=== PATIENT | female | born 1955 | race Caucasian/White ===

== ENCOUNTER 2023-08-04 10:19 | Emergency (ER) | payer OTHER, SELFPAY ==
[2023-08-04 10:29] VITALS: BP 182/98
--- NOTE | 2023-08-04 11:03 | ED.GENMED ---
History of Present Illness
General
Chief Complaint: Fall
Source: patient
Exam Limitations: none
Time Seen by Provider: 08/04/23 10:38
Nursing documentation reviewed up to this point in time: agreed with
Travel History
Have you had any contact with someone who has COVID-19?: No
Do you have any symptoms of coronavirus? Fever > 100 degrees, chills, cough, shortness of breath, sore throat, loss of taste or smell, muscle aches, or headache?: No
History of Present Illness
History of Present Illness:
pt is a 67 y/o F with h/o HLD and osteoporosis
had a mechanical trip and fall getting out of her car last night at 8 pm
had no loc but hit her face on the asphalt.
she has bruising and mild pain to right orbital region
is primarily complainign of left hand pain, 4th adn 5th fingers
no nausea, vomiting, ehadache, blurry vision, cp, sob, syncope, confusoin, weakness, numbness
pt had some mild neck soreness but not significant
she did not take anything for pain and declined offer for tylenol
Past History
Past History
ED Past Medical History: Hypercholesterolemia
Social History
Tobacco: Non-smoker
Alcohol: None
Drug: None
Personal:
Living: with family
Review of Systems
Review of Systems
Allergies reviewed?: Yes
All Other Systems: Not applicable
Phy Exam
Physical Exam
Physical Exam:
GENERAL: Alert , in no apparent distress
HEAD: NCAT
FACE: significant STS and ecchymosis right orbital region
mild tenderness to forehaed and superior orbit
no inferior orbital tenderness despite ecchymosis
pt is still able to open her eye but has some mild eyelid edema
normal pupil
NECK: no midline tenderness, active ROM intact, no paraspinal muscle tenderness; full rom
EYE: pupils equal and reactive, EOMs intact.
ENT: o/p clr, mmm. no hemotympanum
CARDIAC: Regular rate and rhythm, no edema
LUNGS: Clear breath sounds bilaterally, no acute respiratory distress, no wheezes/rales/rhonchi
ABDOMEN: Soft, without focal tenderness, no r/g, no cvat
NEUROLOGICAL: Alert and oriented, no focal neuro deficits, CN intact, 5/5 strength, sensation intact
SKIN: Warm and dry, bruising to face
MUSCULOSKELETAL: mild swelling to 3rd MCP joint L hand without tenderness
nontender 4th and 5th digits, no deformities
pt has pain with movement of fingers
wrist and forearm normal
PSYCH: Normal and appropriate interaction.
Course
Orders/Labs/Results
Orders:
Orders
08/04/23 10:57
CT Head W/o Iv Contrast Urgent
Comment:
Reason For Exam: fall yesterday, hit head
CT Orbits W/o Iv Contrast Urgent
Comment:
Reason For Exam: fall yesterday, orbital sts and bruising and tende
CR Hand - Left Min 3 Views Urgent
Comment:
Reason For Exam: left 4th and 5th finger pain after fall
08/04/23 12:03
Vital Signs- Treatment ONCE
Frequency: Once
Vital Signs
Initial and Last Documented VS:
Initial Vital Signs
Temp Pulse Resp BP Pulse Ox
99.0 F 91 16 182/98 98
08/04/23 10:29 08/04/23 10:29 08/04/23 10:29 08/04/23 10:29 08/04/23 10:29
Last Documented Vital Signs
Temp Pulse Resp BP Pulse Ox
99.0 F 91 16 160/84 98
08/04/23 10:29 08/04/23 10:29 08/04/23 10:29 08/04/23 12:13 08/04/23 10:29
MDM/Problems Addressed
Differential Diagnosis Includes:
contusion, fracture, head injury hand fracture
MDM/Problems Addressed:
67 y/o F with mechanical flal causing contusion to rigth orbital region and left hand pain/contusion
no loc
no vision changes
no vomting
no thinners
hand xray indep reviewed by me and neg for fx
ct head/orbits neg
ice, tylenol
*Critical Care Note
Total Time (30-74mins, 75-104mins- exclusive of procedures): Not Applicable
ED Attending Note
-
Portions of this chart may have been created with voice recognition software.� Occasional wrong word or��sound alike� substitutions may have occurred due to the inherent limitations of voice recognition software.
Discharge Plan
Departure
Patient Disposition: Home (Routine Discharge)
Date of Disposition: 08/04/23
Time of Disposition: 12:01
Patient with high blood pressure during this ER visit?: Yes
Condition: Fair
Covid-19: Not Applicable
Discharge Problem:
Fall, Contusion of face, Contusion of hand
Instructions: Contusion (DC), BLOOD PRESSURE
Referrals:
Edson Lopes MD [Family Provider] - Follow up in 2-3 days
Activity Restrictions/Additional Instructions:
Fortunately your CAT scan showed no signs of traumatic head injury or fracture in your orbit region. You should ice off-and-on, the contusion will continue to drain down your face, it will take some time for the blood to resorb. You can take
Tylenol or ibuprofen if you tolerate it for pain as needed. Your hand x-ray did not show any obvious fractures. You can ice off-and-on to your face and your hand. Follow-up with your family doctor in the next couple of days as needed. Return for
any concerns like severe headache, vomiting, vision changes, numbness tingling or weakness, confusion, any concerns
Interventions
Interventions:
*Risk Screen - Suicide Last Done: 08/04/23 10:41
*General Assessment Last Done: 08/04/23 10:41
*Neglect/Abuse Screening Last Done: 08/04/23 10:41
ED- Fall Risk Assessment Last Done: 08/04/23 10:41
*ED COVID-19 Vaccine History Last Done: 08/04/23 10:29
*Nursing Disposition Last Done: 08/04/23 12:13
ED-Musculoskeletal Assessment Last Done: 08/04/23 10:41
ED- Neurological Assessment Last Done: 08/04/23 10:41
ED-Skin Assessment Last Done: 08/04/23 10:41
Discharge Date and Time
Discharge Date/Time: 08/04/23 12:14
[2023-08-04 12:13] VITALS: BP 160/84
== END 2023-08-04 12:14 | disposition home or self-care (01) ==
LOC: EMR 10:19
PROVIDERS: EMERGENCY PHYSICIAN Emergency Medicine; FAMILY PHYSICIAN Family Medicine
DX: S00.83XA Contusion of other part of head, initial encounter (principal); S60.222A Contusion of left hand, initial encounter; W19.XXXA Unspecified fall, initial encounter; E78.00 Pure hypercholesterolemia, unspecified; M81.0 Age-related osteoporosis without current pathological fracture
CPT/HCPCS: 99284; 70450; 70480; 73130

== ENCOUNTER → 2023-11-15 07:44 | Outpatient (REF) | payer OTHER, SELFPAY | LOC: RAD 07:44 | PROVIDERS: ATTENDING PHYSICIAN Family Medicine | DX: Z87.891 Personal history of nicotine dependence (principal); Z12.2 Encounter for screening for malignant neoplasm of respiratory organs | CPT/HCPCS: 71271 ==

== ENCOUNTER → 2023-11-20 08:59 | Outpatient (REF) | payer OTHER, SELFPAY | LOC: WDC 08:59 | PROVIDERS: ATTENDING PHYSICIAN Family Medicine | DX: Z12.31 Encounter for screening mammogram for malignant neoplasm of breast (principal); M85.80 Other specified disorders of bone density and structure, unspecified site | CPT/HCPCS: 77063; 77067; 77080 ==